=== PATIENT | female | born 1990 | race Caucasian/White ===

== ENCOUNTER 2019-09-08 06:20 | Inpatient (IN) ==
[2019-09-08] MEDS ORDERED: D5 1/2 NS 1000 ML 1,000 ML IV SCH (06:28)
[2019-09-08] MEDS ORDERED: ANCEF VIAL 1 GRAM IVP ONE (06:28)
[2019-09-08] MEDS ORDERED: LR 1000 ML IV 1,000 ML IV ONE ×2 (06:35→07:44)
[2019-09-08] MEDS ORDERED: ANCEF 1 GRAM IV PREMIX* 2 G/100 ML BAG IV ONE (06:35)
[2019-09-08] MEDS ORDERED: DILAUDID INJ ONE (07:08)
[2019-09-08] MEDS ORDERED: REGLAN INJ 10 MG VIAL IVP PRN ×2 (08:54→09:14)
[2019-09-08] MEDS ORDERED: ZOFRAN INJ 4 MG VIAL IVP PRN ×2 (08:54→09:14)
[2019-09-08] MEDS ORDERED: BENADRYL INJ 50 MG VIAL IVP PRN ×2 (08:54→09:14)
[2019-09-08] MEDS ORDERED: DILAUDID INJ IVP PRN (08:54)
[2019-09-08] MEDS ORDERED: PHENERGAN INJ 25 MG IM PRN (08:54)
[2019-09-08] MEDS ORDERED: MYLICON TAB 80 MG CHEW PO PRN (09:14)
[2019-09-08] MEDS ORDERED: PERCOCET TAB 5/325 MG PO PRN ×2 (09:14→14:22)
[2019-09-08] MEDS ORDERED: D5 1/2 NS 1000 ML 1,000 ML with PITOCIN 20 UNITS IV SCH ×2 (09:14)
[2019-09-08] MEDS ORDERED: ADACEL or BOOSTRIX TDaP VACCINE IM ONE (09:14)
[2019-09-08] MEDS ORDERED: NARCAN INJ IVP PRN (09:14)
[2019-09-08] MEDS: TORADOL 30 MG VIAL IVP PRN ×2 (10:30→21:30)
[2019-09-08] MEDS ORDERED: XYLOCAINE 2 % (PLAIN) ONE (13:45)
[2019-09-08] MEDS ORDERED: PITOCIN ONE (13:45)
[2019-09-08] MEDS ORDERED: EPHEDRINE SULFATE INJ ONE (13:45)
[2019-09-08] MEDS ORDERED: VERSED ONE (13:45)
[2019-09-08] MEDS ORDERED: MARCAINE SPINAL ONE (13:45)
[2019-09-08] MEDS: PRENATAL PLUS PO SCH (14:54)
[2019-09-08 17:06] VITALS: BP 119/77
[2019-09-08] MEDS: COLACE CAP 100 MG PO SCH (21:10)
[2019-09-08] MEDS: BACTROBAN CREAM TOP SCH (21:15)
[2019-09-09 05:42] LABS: HEMATOCRIT 30.4 % (36.0-47.0); HEMOGLOBIN 10.5 g/dL (12.0-16.0)
[2019-09-09] MEDS: BACTROBAN CREAM TOP SCH (06:32)
[2019-09-09] MEDS: COLACE CAP 100 MG PO SCH (09:59)
[2019-09-09] MEDS: PRENATAL PLUS PO SCH (09:59)
[2019-09-09] MEDS: TORADOL 30 MG VIAL IVP PRN (10:00)
== END 2019-09-09 10:45 | disposition home or self-care (01) | DRG 785 ==
LOC: LD 06:20 → MED/SURG 09:29
PROVIDERS: ADMIT Specialist; ATTEND Specialist
DX: Z3A.39 39 weeks gestation of pregnancy; O34.211 Maternal care for low transverse scar from previous cesarean delivery; Z23 Encounter for immunization; Z37.0 Single live birth; N85.8 Other specified noninflammatory disorders of uterus; Z30.2 Encounter for sterilization
CPT/HCPCS: 36415; 85014; 85018; 90715; A4216; A4222; J0690; J1170; J1885; J2250; J2405; J2590; J2765; J3490; J7120; S0197; S5010